=== PATIENT | female | born 1955 | race Hispanic/Latino ===

== ENCOUNTER 2019-10-23 08:40 | Emergency (ER) | payer BC, OTHER ==
[~2019-10-23 08:40] MED LIST: ASPI-555 PO; DAPA10TA PO; GLYB1TAB3 PO; INSU10VI3 SQ; LABE100T5 PO; LOSA1TAB54 PO; MONT10TA24 PO; SERT50TA12 PO; [UNRECOGNIZED DRUG - OTHER] IH
[2019-10-23 09:07] LABS: BASOPHILS % (AUTO) 0.6 % (0.0-5.0); EOSINOPHILS % (AUTO) 4.2 % (0.0-8.0); LYMPHOCYTES % (AUTO) 22.1 % (21.0-51.0); MEAN CORPUSCULAR HEMOGLOBIN 27.8 pg (27.0-33.0); MEAN CORPUSCULAR HGB CONC 33.1 g/dL (32.0-36.0); MEAN CORPUSCULAR VOLUME 84.1 fL (79-99); MONOCYTES % (AUTO) 7.6 % (3.0-13.0); NEUTROPHILS % (AUTO) 65.3 % (40.0-77.0); PLATELET COUNT (AUTO) 222 K/uL (130-400); RED BLOOD CELL COUNT(AUTO) 4.28 MIL/uL (4.00-5.50); RED CELL DISTRIBUTION WIDTH 12.8 % (11.0-15.5); WHITE BLOOD COUNT (AUTO) 9.2 K/uL (4.8-10.8)
[2019-10-23 09:11] LABS: POTASSIUM 4.8 mmol/L (3.5-5.1)
[2019-10-23 09:12] LABS: PARTIAL THROMBOPLASTIN TIME 27.5 SEC (26.3-35.5); PROTHROMBIN TIME 10.5 SEC (9.6-11.6)
[2019-10-23 09:15] LABS: ALBUMIN 4.1 g/dL (3.5-5.0); BILIRUBIN,TOTAL 0.6 mg/dL (0.2-1.0); TOTAL PROTEIN, SERUM 7.3 g/dL (6.0-8.3)
[2019-10-23 09:27] LABS: B-TYPE NATRIURETIC PEPTIDE 14 pg/mL (0-100)
[2019-10-23 09:58] LABS: T4 (THYROXINE) 10.5 ug/dL (4.7-13.3); THYROID STIMULATING HORMONE 1.44 uIU/mL (0.36-3.74)
[2019-10-23] MEDS ORDERED: SODIUM CHLORIDE 0.9% 1000ML 1,000 ML IV ONE (10:01)
== END 2019-10-23 10:50 | disposition home or self-care (01) ==
LOC: EDH 08:40
DX: R00.2 Palpitations (principal); R05 Cough; E11.9 Type 2 diabetes mellitus without complications; I10 Essential (primary) hypertension; Z88.8 Allergy status to other drugs, medicaments and biological substances
CPT/HCPCS: 36415; 71045; 80053; 82550; 83880; 84436; 84443; 84484; 85025; 85610; 85730; 93005; 99285; J7030